=== PATIENT | female | born 1995 ===

== ENCOUNTER 2016-12-24 13:10 | Emergency (ER) | payer MEDICAID, OTHER ==
[2016-12-24 13:29] VITALS: BP 107/66; PULSE 90; TEMP 98.7; O2SAT 98
--- NOTE | 2016-12-24 14:05 | C.PDOC ---
History Of Present Illness 21 yr old female presents to the ER with complaints of right vaginal pain for the past 3 days. patient reports LMP was 1 month ago. Patient denies fever, abdominal pain, diarrhea, dysuria, swelling, rash, discharge, weakness or numbness. R VAGINAL PAIN X 3 DAYS. NO SWELL, DC, RASH. LMP 1 MO. 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 NO RASH MDM POSSIBLE EARLY BARTHOLIN BUT NO ABSCESS TO I&D. WARM SOAKS, ABX FU OBGYN Time Seen by Provider: 12/24/16 13:32 Chief Complaint (Nursing): Female Genitourinary History Per: Patient History/Exam Limitations: no limitations Onset/Duration Of Symptoms: Days (3 days) Recent travel outside of the [place]: No Past Medical History Reviewed: Historical Data, Nursing Documentation, Vital Signs Vital Signs: Last Vital Signs Temp 98.7 F 12/24/16 13:28 Pulse 90 12/24/16 13:28 Resp 18 12/24/16 13:28 BP 107/66 12/24/16 13:28 Pulse Ox 98 12/24/16 14:21 Family History: States: No Known Family Hx - Social History Hx Alcohol Use: Yes Hx Substance Use: No Review Of Systems Except As Marked, All Systems Reviewed And Found Negative. Constitutional: Negative for: Fever Gastrointestinal: Negative for: Abdominal Pain, Diarrhea Genitourinary: Positive for: Other ((+) Vaginal pain. ). Negative for: Dysuria , Vaginal Discharge, Rash Neurological: Negative for: Weakness, Numbness Physical Exam - Physical Exam Appears: Non-toxic, No Acute Distress Skin: Warm, Dry, No Rash Head: Atraumatic, Normacephalic Pelvic: No Vaginal Discharge, Other ((+) Mild swelling with local tenderness to the right labia majora. (-) No focal fluctuance. No obvious abscess. No rash. ) Extremity: Normal ROM, No Swelling Neurological/Psych: Oriented x3, Normal Speech Gait: Steady ED Course And Treatment - Laboratory Results Urine POC: Negative O2 Sat by Pulse Oximetry: 98 Medical Decision Making Medical Decision Making: PLAN: * POC * Urinalysis NOTE: Possible early Bartholin. No abscess to I&D. Advised to do warm soaks and to follow up with OBGYN. Disposition Counseled Patient/Family Regarding: Diagnosis, Need For Followup, Rx Given - Disposition Referrals: [facility] [Outside] [facility] [Outside] [facility] [Other] Disposition: HOME/ ROUTINE Disposition Time: 14:02 Condition: GOOD Additional Instructions: USE SITZ BATH 3-4 X/DAY. TYLENOL AND/OR MOTRIN NEEDED DIRECTED FOR PAIN. RETURN IF WORSENING SYMPTOMS, INCREASING SWELLING Prescriptions: Sulfamethoxazole/Trimethoprim [Bactrim DS 800 mg-160 mg] 1 tab PO BID #14 tab Instructions: Bartholin Cyst (ED) - Clinical Impression Clinical Impression: Vaginal pain - Scribe Statement The provider has reviewed the documentation as recorded by the Alireza Licona Provider Attestation: All medical record entries made by the Markibbrain were at my direction and personally dictated by me. I have reviewed the chart and agree that the record accurately reflects my personal performance of the history, physical exam, medical decision making, and the department course for this patient. I have also personally directed, reviewed, and agree with the discharge instructions and disposition.
[2016-12-24 14:45] LABS: RBC URINE < 1 /hpf (0-3); URINE BACTERIA RARE (<OCC); URINE BILIRUBIN NEGATIVE (NEGATIVE); URINE BLOOD NEGATIVE (NEGATIVE); URINE COLOR Yellow (YELLOW); URINE GLUCOSE (UA) NORMAL (Normal); URINE KETONE NEGATIVE (NEGATIVE); URINE LEUKOCYTE ESTERASE 2+ Leu/uL (Negative); URINE PROTEIN NEGATIVE (NEGATIVE); URINE UROBILINOGEN NORMAL mg/dL (0.2-1.0)
[2016-12-24 14:47] LABS: WBC URINE 2 /hpf (0-5)
[2016-12-24 15:02] VITALS: RESP 20
== END 2016-12-24 15:01 | disposition home or self-care (01) ==
LOC: C.ER 13:10
DX: R10.2 Pelvic and perineal pain (principal)

== ENCOUNTER 2016-12-25 16:08 | Emergency (ER) | payer MEDICAID, OTHER ==
[2016-12-25 17:16] VITALS: RESP 18
--- NOTE | 2016-12-25 20:25 | C.PDOC ---
History Of Present Illness 21 year old female presents to the ED with complaints of pain to her right labia for the past several days. Patient states she was seen here yesterday and diagnosed with an early Bartholin's abscess. She was given a prescription for antibiotics and advised sitz baths, however she did not fill the prescription and notes the symptoms are worse and the abscess is now draining. Denies fever, chills, urinary symptoms, or any other complaints at this time. Time Seen by Provider: 12/25/16 19:16 Chief Complaint (Nursing): Female Genitourinary History Per: Patient History/Exam Limitations: no limitations Onset/Duration Of Symptoms: Days Current Symptoms Are (Timing): Worse Quality Of Discomfort: "Pain" Abnormal Vaginal Bleeding: No Past Medical History Reviewed: Historical Data, Nursing Documentation, Vital Signs Vital Signs: Last Vital Signs Temp 98.2 F 12/25/16 20:59 Pulse 72 12/25/16 20:59 Resp 18 12/25/16 20:59 BP 121/76 12/25/16 20:59 Pulse Ox 98 12/25/16 20:59 - Medical History PMH: No Chronic Diseases Family History: States: Unknown Family Hx - Social History Hx Alcohol Use: Yes Hx Substance Use: No Review Of Systems Except As Marked, All Systems Reviewed And Found Negative. Constitutional: Negative for: Fever, Chills Gastrointestinal: Negative for: Abdominal Pain Genitourinary: Positive for: Other (+Pain to the right labia). Negative for: Dysuria, Frequency, Hematuria Physical Exam - Physical Exam Appears: Non-toxic, No Acute Distress Head: Atraumatic, Normacephalic Oral Mucosa: Moist Respiratory: No Accessory Muscle Use Gastrointestinal/Abdominal: Soft, No Tenderness, No Distention, No Guarding, No Rebound Pelvic: Other (+Mild swelling to the right labia with an area of drainage) Neurological/Psych: Oriented x3, Normal Speech, Normal Cognition ED Course And Treatment O2 Sat by Pulse Oximetry: 97 (Room air) Pulse Ox Interpretation: Normal Progress Note: Patient medicated with Percocet in the ED and advised to fill the Rx and follow up with the clinic. Disposition Counseled Patient/Family Regarding: Diagnosis, Need For Followup - Disposition Referrals: [facility] [Outside] Disposition: HOME/ ROUTINE Disposition Time: 20:23 Condition: GOOD Additional Instructions: Start abx prescribed yesterday, Start sitz baths every few hour Follow up in the Clinic Prescriptions: Naproxen [Naprosyn] 1 tab PO BID PRN #25 tab PRN Reason: Pain Instructions: Bartholin Cyst (ED) - Clinical Impression Clinical Impression: Bartholin's gland infection - Scribe Statement The provider has reviewed the documentation as recorded by the Scribe Renny Paulino. Provider Attestation: All medical record entries made by the Scribe were at my direction and personally dictated by me. I have reviewed the chart and agree that the record accurately reflects my personal performance of the history, physical exam, medical decision making, and the department course for this patient. I have also personally directed, reviewed, and agree with the discharge instructions and disposition.
[2016-12-25] MEDS ORDERED: Oxycodone/Acetaminophen 5/325 mg Tab PO STA (20:26)
[2016-12-25 21:00] VITALS: BP 121/76; PULSE 72; TEMP 98.2
[2016-12-31 10:15] VITALS: O2SAT 97
== END 2016-12-25 21:00 | disposition home or self-care (01) ==
LOC: C.ER 16:08
DX: N75.8 Other diseases of Bartholin's gland (principal)

== ENCOUNTER 2017-06-06 20:06 | Emergency (ER) | payer MEDICAID ==
[2017-06-06 21:26] VITALS: BP 106/69; PULSE 87; RESP 16; TEMP 98.9; O2SAT 99
--- NOTE | 2017-06-06 21:49 | C.PDOC ---
History Of Present Illness 21 year old female comes in complaining of cough, cold, sore throat, nasal congestion, and cold sore to the upper lip area since yesterday. Cold sore is described as a burning sensation. Patient denies fever, chills, rash, or any other complaints. Time Seen by Provider: 06/06/17 21:33 Chief Complaint (Nursing): ENT Problem History Per: Patient History/Exam Limitations: no limitations Onset/Duration Of Symptoms: Days (Yesterday) Current Symptoms Are (Timing): Still Present Severity: Mild Recent travel outside of the [place]: No Additional History Per: Patient Past Medical History Reviewed: Historical Data, Nursing Documentation, Vital Signs Vital Signs: Last Vital Signs Temp 98.9 F 06/06/17 21:19 Pulse 87 06/06/17 21:19 Resp 16 06/06/17 21:19 BP 106/69 06/06/17 21:19 Pulse Ox 99 06/06/17 21:55 Family History: States: Unknown Family Hx - Social History Hx Alcohol Use: Yes Hx Substance Use: No - Immunization History Hx Tetanus Toxoid Vaccination: No Hx Influenza Vaccination: No Hx Pneumococcal Vaccination: No Review Of Systems Constitutional: Negative for: Fever, Chills ENT: Positive for: Nose Congestion, Throat Pain, Other (Cold sore to the upper lip area) Respiratory: Positive for: Cough Skin: Negative for: Rash Physical Exam - Physical Exam Appears: Non-toxic, No Acute Distress Skin: Warm, Dry Head: Atraumatic, Normacephalic Eye(s): bilateral: Normal Inspection, EOMI Ear(s): Bilateral: Normal Nose: Normal Oral Mucosa: Moist Lips: No Swelling, Lesions (Vesicular lesion to the upper lip) Throat: Erythema, No Exudate Neck: Normal ROM, Supple Chest: Symmetrical Cardiovascular: Rhythm Regular, No Murmur Respiratory: Normal Breath Sounds, No Rales, No Wheezing Extremity: Bilateral: Atraumatic, Normal Color And Temperature, Normal ROM Neurological/Psych: Oriented x3, Normal Speech Gait: Steady ED Course And Treatment O2 Sat by Pulse Oximetry: 99 (RA) Pulse Ox Interpretation: Normal Medical Decision Making Medical Decision Making: Impression: * URI and herpes simplex Dispo: Patient is in no acute distress and is currently afebrile. Rx given. Patient was instructed to follow up with her PMD within 2 days for further evaluation and to return if symptoms worsens. Disposition Counseled Patient/Family Regarding: Need For Followup, Rx Given - Disposition Referrals: Jake Linton MD [Medical Doctor] - Disposition: HOME/ ROUTINE Disposition Time: 22:35 Condition: GOOD Additional Instructions: Take medication as prescribed Drink fluids and rest Take over the counter cough and cold medicine as needed Prescriptions: Acyclovir 400 mg PO TID #21 tablet Instructions: Oral Herpes Simplex Virus Infections (ED), Cold Symptoms (ED) Forms: [employer] (Maori) - POA Present On Arrival: None - Clinical Impression Clinical Impression: Herpes simplex, Upper respiratory infection - Scribe Statement The provider has reviewed the documentation as recorded by the Scribe Tena payan All medical record entries made by the Markibe were at my direction and personally dictated by me. I have reviewed the chart and agree that the record accurately reflects my personal performance of the history, physical exam, medical decision making, and the department course for this patient. I have also personally directed, reviewed, and agree with the discharge instructions and disposition.
== END 2017-06-06 22:15 | disposition home or self-care (01) ==
LOC: C.ER 20:06
DX: J06.9 Acute upper respiratory infection, unspecified (principal); B00.1 Herpesviral vesicular dermatitis